=== PATIENT | male | born 1970 | race Caucasian/White ===

== ENCOUNTER 2022-08-30 17:40 | Emergency (ER) | payer MEDICAID, SELFPAY ==
[2022-08-30] VITALS (15 sets, daily range): BP systolic 133–156; BP diastolic 85–101; PULSE 79–102; RESP 14–24; TEMP 36.4; O2SAT 93–98
[2022-08-30 18:02] LABS: Glucose Point of Care > 600 mg/dL (70-110)
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
[2022-08-30] MEDS: insulin regular-human 100 units/1 mL 10 UNIT IVP (18:21)
[2022-08-30] MEDS: sodium chloride 0.9% 1,000 ML 999 ML IV (18:22)
[2022-08-30 18:33] LABS: Basophils # 0.1 10^3/uL (0.0-0.1); Basophils % 0.6 %; Eosinophils # 0.1 10^3/uL (0.0-0.8); Eosinophils % 0.7 %; Hematocrit 43.7 % (42.0-52.0); Hemoglobin 15.2 g/dL (11.7-16.6); Lymphocytes # 2.2 10^3/uL (0.8-4.8); Lymphocytes % 24.7 %; Mean Corpuscular HGB Conc 34.8 g/dL (30.0-36.0); Mean Corpuscular Hemoglobin 29.9 pg (28.0-34.0); Monocytes # 0.4 10^3/uL (0.2-0.9); Monocytes % 4.5 %; Neutrophils # 6.23 10^3/uL (1.8-7.7); Neutrophils % 69.1 %; Nucleated Red Blood Cells % 0 %; Platelet Count 239 10^3/cmm (130-400); Red Blood Count 5.08 10^6/uL (4.1-5.3); Red Cell Distribution Width 11.5 % (12.1-15.1)
[2022-08-30 18:54] LABS: Alanine Aminotransferase 22 U/L (0-41); Albumin Level 4.6 g/dL (3.5-5.2); Aspartate Amino Transferase 15 U/L (0-40); Calcium 9.9 mg/dL (8.5-10.5); Carbon Dioxide 27 mmol/L (22-29); Globulin 3.1 g/dL (1.3-4.6); Lipase 25 U/L (13-60); Potassium 4.5 mmol/L (3.5-5.1); Total Bilirubin 0.3 mg/dL (0.15-1.2); Total Protein 7.7 g/dL (6.6-8.7)
[2022-08-30 18:56] LABS: Ketone (Acetest) Serum Negative (Negative)
[2022-08-30 19:08] LABS: Alkaline Phosphatase 233 U/L (40-130); Anion Gap 19.5 (5-19); Blood Urea Nitrogen 25 mg/dL (6-20); Chloride 89 mmol/L (98-107); Osmolality Calculated 310 mOsm/kg (285-295); Sodium 131 mmol/L (136-145)
[2022-08-30 19:09] LABS: Glucose 710 mg/dL (65-115)
[2022-08-30 19:10] LABS: Blood Gas Sample Site Not specified; Blood Gas Sample Type Arterial; HCO3 VBG 24.7 mmol/L (24-28); PCO2 VBG 39.6 mmHg (41-51); PO2 VBG 59.5 mmHg (25-40); Venous Blood Gas Hematocrit 43.7 % (42-52)
[2022-08-30 19:10] LABS: Add Urine Microscopic? NO; Charge for UA Resulting for Rev
[2022-08-30 19:14] LABS: Bilirubin Urine Neg (Negative); Blood Urine Neg (Negative); Glucose Urine UA 4+ (Normal); Ketones Urine Negative (Negative); Leukocyte Esterase Urine Negative (Negative); Nitrate Urine Negative (Negative); Protein Urine Neg (Negative); Specific Gravity, Urine 1.005 (1.005-1.030); Urine Appearance Clear (CLEAR); Urine Color Light yellow (Yellow); Urobilinogen Urine Neg (Negative); pH Urine 7 (5-7)
[2022-08-30 19:39] LABS: Glucose Point of Care 428 mg/dL (70-110)
== END 2022-08-30 20:14 | disposition home or self-care (01) ==
PROVIDERS: Emergency Provider Physician Assistant; PCP Family Medicine
DX: E11.65 Type 2 diabetes mellitus with hyperglycemia (principal)
CPT/HCPCS: 36416; 80053; 81003; 82009; 82010; 82803; 82962; 83690; 85025; 96361; 96374; 99284; J1815; J7030

== ENCOUNTER 2023-02-25 15:05 | Emergency (ER) | payer MEDICAID, SELFPAY ==
[2023-02-25 15:31] VITALS: BP 122/82; PULSE 86; RESP 17; TEMP 36.5; O2SAT 93; BMI 25.1
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
[2023-02-25] MEDS: mupirocin oint 22 gm 1 APPLIC TOPICAL (18:34)
[2023-02-25] MEDS: amoxicillin-clav 875-125 mg Tablet 1 TAB PO (18:34)
--- NOTE | 2023-02-28 08:05 | DCPLANNER ---
Addendum entered by Tasneem Mayers 03/17/23 07:04: Patient had a follow up appointment scheduled with ENT - patient did not attend appointment Addendum entered by Tasneem Mayers 03/01/23 15:52: Patient has a follow up appointment scheduled for Saturday, March 11, [address]23 at 9:[address] Boyd at ENT. Original Note: crop grain or livestock farm manager had message to schedule a follow up appointment for patient with ENT. crop grain or livestock farm manager sent patients information to the front office staff at ENT. Patients information will be printed and reviewed. Clinic will call patient with appointment information.
== END 2023-02-25 18:41 | disposition home or self-care (01) ==
PROVIDERS: Emergency Provider Nurse Practitioner Family; PCP Family Medicine
DX: S01.21XA Laceration without foreign body of nose, initial encounter (principal); V28.49XA Other motorcycle driver injured in noncollision transport accident in traffic accident, initial encounter
CPT/HCPCS: 70160; 99283

== ENCOUNTER → 2023-05-31 16:27 | Outpatient (BNVA) | payer MEDICAID, SELFPAY | PROVIDERS: PCP Family Medicine; Visit Provider Physician Assistant | DX: S69.90XA Unspecified injury of unspecified wrist, hand and finger(s), initial encounter (principal); V29.99XA Rider (driver) (passenger) of other motorcycle injured in unspecified traffic accident, initial encounter; M25.531 Pain in right wrist | CPT/HCPCS: 73130 ==

== ENCOUNTER 2024-11-02 08:40 | Outpatient (CLI) | payer MEDICAID, SELFPAY ==
--- NOTE | 2024-11-02 08:42 | US_ITS ---
WS: [id number] URINARY BLADDER ULTRASOUND HISTORY: INCREASED URINATION FREQUENCY COMPARISON: None available. Urinary bladder is well distended. No intraluminal filling defect. No free fluid adjacent to the urinary bladder. Small bladder diverticulum from the RIGHT posterior measures 1.6 x 1.4 x 1.6 cm. Mildly heterogeneous prostate gland. Bladder Wall Thickness: 0.3 cm. Bladder Prevoid: 6.3 cm x 7.4 cm x 6.4 cm. Prevoid volume: 157.0 ml. Bladder Postvoid: 3.9 cm x 4.6 cm x 3.1 cm. Postvoid volume: 29 ml. US/US bladder [id number] IMPRESSION: 1. Normally distended urinary bladder. No intraluminal filling defect. 2. No significant post void residual. 3. Small RIGHT posterior lateral bladder diverticulum.
== END 2024-11-02 08:41 | disposition home or self-care (01) ==
PROVIDERS: PCP Family Medicine; Visit Provider Family Medicine
DX: R35.0 Frequency of micturition (principal); N32.3 Diverticulum of bladder; N42.89 Other specified disorders of prostate
CPT/HCPCS: 76857

== ENCOUNTER 2025-03-20 20:00 | Outpatient (CLI) | payer MEDICAID, SELFPAY | END 2025-03-20 20:01 | disposition home or self-care (01) | LOC: SLEEP 20:03 | PROVIDERS: PCP Family Medicine; Visit Provider Internal Medicine Pulmonary Disease | DX: G47.19 Other hypersomnia (principal); G47.61 Periodic limb movement disorder | CPT/HCPCS: 95810 ==